=== PATIENT | female | born 1950 | race Hispanic/Latino ===

== ENCOUNTER → 2024-01-31 | Outpatient (CLI) | payer OTHER ==
--- NOTE | 2024-01-31 12:34 | HMCIMG ---
US AORTA LIMITED REASON: localized swelling, mass and lump left lowe limb COMPARISON: None TECHNIQUE: Vascular Doppler evaluation was performed for evaluation of the inferior vena cava and the left common femoral vein. FINDINGS: There is normal-appearing inferior vena cava. The left common femoral vein appears unremarkable as well. There is no evidence of extrinsic compression. There is no evidence of thrombus. IMPRESSION: 1. Normal exam of the left to common iliac vein and the inferior vena cava.
== END | disposition home or self-care (01) ==
LOC: RAH 08:42
PROVIDERS: ATTEND Internal Medicine
DX: R22.42 Localized swelling, mass and lump, left lower limb (principal)
CPT/HCPCS: 76775